=== PATIENT | male | born 1995 | race Caucasian/White ===

== ENCOUNTER 2017-05-17 18:33 | Emergency (ER) | payer MEDICAID ==
[2017-05-17 18:34] VITALS: BP 142/69; PULSE 86; RESP 16; TEMP 98.4; O2SAT 98
[2017-05-17] MEDS ORDERED: BACT800T5 PO (19:30)
--- NOTE | 2017-05-17 19:33 | PD ---
HPI Chief Complaint: Skin Problem Time Seen by Provider: 19:25 Travel History International Travel<30 days: No Contact w/Intl Traveler<30days: No Traveled to known affect area: No History of Present Illness HPI 21-year-old white male presents to emergency Department with complaints of a skin infection to his right ankle over the last few days. He is unsure of the etiology. He states that he's noticed white pustules which he has scratched and now become increasingly red and tender. Mild swelling. He denies any fever chills. Up-to-date with immunizations. Pain is minimal. No alleviating factors. PFSH Past Medical History Medical History: Denies Significant Hx Tetanus Vaccination: < 5 Years Past Surgical History Surgical History: No Previous Surgery Social History Alcohol Use: Yes Tobacco Use: Yes Allergies-Medications (Allergen,Severity, Reaction): Coded Allergies: No Known Allergies (Unverified , 05/17/17) Reported Meds & Prescriptions Reported Meds & Active Scripts Active Bactrim DS (Sulfamethoxazole-Trimethoprim) 800-160 Mg Tab 1 Tab PO BID Review of Systems General / Constitutional: No: Fever Eyes: No: Visual changes HENT: No: Headaches Cardiovascular: No: Chest Pain or Discomfort Respiratory: No: Shortness of Breath Gastrointestinal: No: Abdominal Pain Genitourinary: No: Dysuria Musculoskeletal: Positive: Edema, Pain (minimal), No: Myalgias, Arthralgias, Limited ROM Skin: Positive Rash, Positive Itching Neurologic: No: Weakness Psychiatric: No: Depression Endocrine: No: Polydipsia Hematologic/Lymphatic: No: Easy Bruising Physical Exam Narrative GENERAL: This is a well-nourished, well-developed patient, in no apparent distress. SKIN: No rashes, ecchymoses or lesions. Warm and dry. HEAD: Atraumatic. Normocephalic. EYES: PERRL, EOMI, no discharge or injection. No scleral icterus. EARS: Clear NOSE: Nasal turbinates appear normal. THROAT: Mucosa pink and moist. Airway patent. NECK: Trachea midline. supple, moves head freely. LUNGS: Clear to auscultation. CV: Regular in rhythm. ABDOMEN: Soft nontender. EXT: No clubbing cyanosis or edema. Patient has multiple story irrigated pustules to the right ankle just above the shoe line. It appears to be pustular lesions most likely from fire ants which the patient has now scratched has become secondarily infected. Data Data Last Documented VS Vital Signs Date Time Temp Pulse Resp B/P (MAP) Pulse Ox O2 Delivery O2 Flow Rate FiO2 05/17/17 18:34 98.4 86 16 142/69 (93) 98 Room Air Orders Orders Ed Discharge Order (05/17/17 19:29) MDM Medical Decision Making Medical Screen Exam Complete: Yes Emergency Medical Condition: Yes Medical Record Reviewed: Yes Differential Diagnosis MDM: High Differential diagnoses: Abscess, folliculitis, cellulitis, lymphangitis, abrasion, contact dermatitis, aunt bites Narrative Course Patient has infected ant bites to the right ankle Diagnosis Primary Impression: Bite, fire ant Qualified Codes: T63.421A - Toxic effect of venom of ants, accidental ( unintentional), initial encounter Additional Impression: cellulitis Patient Instructions: General Instructions Additional Instructions: Rest. Elevation. keep clean and dry. Warm compresses Daily wound care with soap, water and Neosporin. Three Advil every 6 hours. Fahad DS. Follow-up with a primary care doctor in one week. Return to the ER for any problems. Med/Other Pt SpecificInfo: Prescription(s) given Scripts Sulfamethoxazole-Trimethoprim (Bactrim DS) 800-160 Mg Tab 1 TAB PO BID for Infection, #20 TAB 0 Refills Prov: Agusto Shrestha MD 05/17/17 Disposition: 01 DISCHARGE HOME Condition: Stable Israel Tirado May 17, 2017 19:33
== END 2017-05-17 20:07 | disposition home or self-care (01) ==
LOC: NEPK 18:33
DX: T63.421A Toxic effect of venom of ants, accidental (unintentional), initial encounter (principal); L03.115 Cellulitis of right lower limb; Z72.0 Tobacco use
CPT/HCPCS: 99283